=== PATIENT | male | born 1980 | race Caucasian/White ===

== ENCOUNTER 2018-01-15 12:41 | Emergency (ER) | payer BC ==
[2018-01-15] MEDS ORDERED: Triamcinolone 40 MG/ML VIAL ONE (12:53)
== END 2018-01-15 13:29 | disposition home or self-care (01) ==
LOC: BURERS 12:41
DX: L25.5 Unspecified contact dermatitis due to plants, except food (principal); Z87.891 Personal history of nicotine dependence
CPT/HCPCS: 36416; 96372; J3301